=== PATIENT | female | born 1995 | race Caucasian/White ===

== ENCOUNTER 2024-07-19 16:20 | Outpatient (REF) | payer MEDICAID, SELFPAY | END 2024-07-19 16:21 | disposition home or self-care (01) | LOC: HO.HHCLNP 16:20 | PROVIDERS: Visit Provider Advanced Practice Midwife | DX: Z12.4 Encounter for screening for malignant neoplasm of cervix (principal) | CPT/HCPCS: 36415; 88175 ==

== ENCOUNTER 2025-03-06 11:00 | Outpatient (RCR) | payer MEDICAID, SELFPAY | END 2025-03-07 07:32 | disposition home or self-care (01) | LOC: HO.PT 11:00 | PROVIDERS: PCP Registered Nurse; Visit Provider Dentist General Practice | DX: M54.9 Dorsalgia, unspecified (principal); M25.519 Pain in unspecified shoulder; N62 Hypertrophy of breast | CPT/HCPCS: 97110; 97161 ==

== ENCOUNTER → 2025-06-13 07:53 | Outpatient (REF) | payer MEDICAID, SELFPAY ==
--- OUTSIDE RECORDS SUMMARY | 2025-06-13 07:56 | XMS_ITS | Encounter Summary ---
Author Organization [employer] Address [address] [place] [address] Care Team Providers Care Phone Technician Name Role Phone Socorro Hurtado JAGRUTI Primary Care Provider [phone] Encounter Details Date Type Department Care Team ([facility] st Contact Info) Description 04/28/2024 Orders Only [facility] [address], [place] [id number] Dyan Strauss CNM [address], [place] [id number] Social History Tobacco Use Types Packs/Day Years Used Date Smoking Tobacco: Never Smokeless Tobacco: Never Alcohol Use Standard Drinks/Week Comments Never 0 (1 standard drink = 0.6 oz pur e alcohol) Housing Stability Answer Date Recorded What is your housing situation today? I do not have housing (Staying with others, in a hotel, in a usp, living outside on the street, on a beach, in a car, or in a park 09/02/[address] you li ve. Do you have problems with any of the following? None of the above 09/02/2023 Food Insecurity Answer Date Recorded Within the past 12 months, y ou worried that your food would run out before you got money to buy more: Never True 09/20/2023 Within the past 12 months,th e food you bought just didn't last and you didn't have enough money to get more: Never True Transportation Answer Date Recorded In the past 12 months, has l ack of transportation kept you from medical appts, meetings, work or from getting things needed for daily living? No 09/20/2023 Utilities Answer Date Recorded In the past 12 months, has t he electric, gas, oil or water [employer] threatened to shut off services in your home? No 09/20/2023 Comments No Sex and Gender Information Value Date Recorded Sex Assigned at Female 09/21/2022 10:38 AM EDT Legal Sex Female 10:38 AM EDT Gender Identity Gender Non-Conforming 10/19/2023 11:01 AM EST Sexual Orientation Bisexual 10/28/2023 8: 58 AM EST documented as of this encounter Plan of Treatment Not on file documented as of this encounter Visit Diagnoses Not on filedocumented in this encounter Care Teams Phone Technician Relationship Specialty Start Date End Date Socorro Hurtado FNP [address] [place] [id number] PCP - General Family Medicine 04/09/23 documented as of this encounter
--- NOTE | 2025-06-13 07:58 | ECG_ITS ---
Test Reason : CHECK QT Blood Pressure : */* mmHG Vent. Rate : 68 BPM Atrial Rate : 68 BPM P-R Int : 166 ms QRS Dur : 76 ms QT Int : 394 ms P-R-T Axes : 39 23 28 degrees QTcB Int : 418 ms Normal sinus rhythm Normal ECG No previous ECGs available Referred By: Gardenia Pelletier Electronically Signed By: Tyler Blankenship
[2025-06-13 08:12] LABS: MANUAL DIFF FLAG NO
[2025-06-13 08:24] LABS: Hematocrit 40.7 % (37.0-47.0); Hemoglobin 13.5 g/dl (12.0-16.0); Imm Gran Abs Auto 0.02 X10*3/uL (0.00-0.03); Imm Gran Pct Auto 0.4 % (0.0-0.4); Lymphocytes Absolute Auto 1.3 X10*3/uL (1.2-4.9); Mean Corpuscular HGB Conc 33.2 g/dl (31.0-35.0); Mean Corpuscular Hemoglobin 27.3 pg (27.0-33.0); Mean Corpuscular Volume 82.4 fL (80.0-98.0); NRBC Abs Auto 0.000 X10*3/uL (0.0-0.012); NRBC Pct Auto 0.0 /100WBC (0.0-0.2); Platelet Count 325 X10*3/uL (160-400); Red Blood Count 4.94 X10*6/uL (4.20-5.50); White Blood Count 5.6 X10*3/uL (4.8-10.8)
[2025-06-13 08:40] LABS: Hemoglobin A1C 118.3281 umol/L; Total Hemoglobin (HGBA1C) 3596.1890 umol/L
[2025-06-13 08:58] LABS: Alanine Aminotransferase 16 U/L (0-31); Albumin Level 4.1 g/dL (3.5-5.0); Alkaline Phosphatase 61 U/L (39-117); Anion Gap 10 (12-20); Aspartate Amino Transferase 15 U/L (5-31); Blood Urea Nitrogen 13 mg/dL (9-16); Calcium 8.9 mg/dL (8.4-10.2); Carbon Dioxide 23 mmol/L (22-29); Chloride 112 mmol/L (96-108); Cholesterol 168 mg/dL (<200); Estimated Glomerular Filt Rate > 60; HDL Cholesterol 46 mg/dL (>40); Iron 65 mcg/dL (30-160); Magnesium 1.8 mg/dL (1.6-2.6); Percent Iron Saturation 24 % (15-50); Potassium 4.2 mmol/L (3.3-5.1); Sodium 141 mmol/L (135-145); Total Iron Binding Capacity 266 mcg/dL (228-428); Total Protein 6.9 g/dL (6.5-8.0); Triglycerides 68 mg/dL (<150); Unsaturated Iron Binding 201 ug/dL
[2025-06-13 09:15] LABS: Free T4 (Free Thyroxine) 0.92 ng/dL (0.71-1.85); Thyroid Stimulating Hormone 1.01 uIU/mL (0.32-4.0)
[2025-06-13 09:31] LABS: Folate 8.1 ng/mL (> or = 4.0); Vitamin B12 514 pg/mL (200-900)
== END ==
LOC: HO.CARD 07:53
PROVIDERS: PCP Registered Nurse; Visit Provider Psychiatry & Neurology Psychiatry
DX: F39 Unspecified mood [affective] disorder (principal)
CPT/HCPCS: 36415; 80053; 80061; 82306; 82607; 82746; 83036; 83090; 83540; 83735; 84425; 84439; 84443; 85025; 93005

== ENCOUNTER → 2025-06-13 07:58 | Outpatient (BNV) | payer MEDICAID, SELFPAY | PROVIDERS: PCP Registered Nurse; Visit Provider Internal Medicine Cardiovascular Disease | DX: Z13.6 Encounter for screening for cardiovascular disorders (principal) | CPT/HCPCS: 93010 ==